=== PATIENT | female | born 1965 | race Two or more races ===

== ENCOUNTER → 2017-04-23 | Outpatient (CLI) | payer BC ==
[2017-04-23 09:11] LABS: Basophils # (auto) 0.1 uL; Eosinophils # (auto) 0.2 uL; Eosinophils % (auto) 3.8 % (0.0-7.0); Hematocrit 41.6 % (36.0-46.0); Hemoglobin 14.1 g/dL (12.2-16.2); Lymphocytes # (auto) 2.3 uL; Lymphocytes % (auto) 37.2 % (10.0-50.0); Mean Corpuscular Hemoglobin 31.1 pg (28.0-32.0); Mean Corpuscular Volume 91.5 fL (80.0-100.0); Mean Platelet Volume 7.4 fL (6.9-10.8); Monocytes # (auto) 0.5 uL; Monocytes % (auto) 8.4 % (0.0-12.0); Neutrophils # (auto) 3.1 uL; Neutrophils % (auto) 49.6 % (37.0-80.0); Nucleated Red Blood Cells % 0.1 %; Platelet Count (auto) 330 10^3/uL (140-450); Red Cell Distribution Width 12.3 % (11.8-14.3); White Blood Cell 6.3 10^3/uL (4.4-10.8)
[2017-04-23 09:29] LABS: Albumin 3.6 g/dL (3.4-5.0); BUN/Creatinine Ratio 14.5; Bilirubin, Total 0.2 mg/dL (0.2-1.0); Calcium 8.2 mg/dL (8.5-10.1); Potassium 3.6 mmol/L (3.5-5.1); Total Protein 7.1 g/dL (6.4-8.2)
== END | disposition home or self-care (01) ==
LOC: LAB 08:33
PROVIDERS: ATTEND Obstetrics & Gynecology
DX: M85.80 Other specified disorders of bone density and structure, unspecified site (principal); R53.83 Other fatigue; E55.9 Vitamin D deficiency, unspecified
CPT/HCPCS: 36415; 80053; 82306; 84443; 85025

== ENCOUNTER → 2017-11-06 | Outpatient (CLI) | payer BC ==
[2017-11-06 08:47] LABS: Basophils # (auto) 0 uL; Basophils % (auto) 0.7 % (0.0-2.0); Eosinophils # (auto) 0.2 uL; Eosinophils % (auto) 3.2 % (0.0-7.0); Hematocrit 44.5 % (36.0-46.0); Hemoglobin 14.9 g/dL (12.2-16.2); Lymphocytes # (auto) 1.9 uL; Lymphocytes % (auto) 27.4 % (10.0-50.0); Mean Corpuscular Hemoglobin 30.8 pg (28.0-32.0); Mean Corpuscular Hgb Conc. 33.6 g/dL (32.0-36.0); Mean Corpuscular Volume 91.7 fL (80.0-100.0); Monocytes # (auto) 0.7 uL; Monocytes % (auto) 9.6 % (0.0-12.0); Neutrophils # (auto) 4.1 uL; Neutrophils % (auto) 59.1 % (37.0-80.0); Nucleated Red Blood Cells % 0.2 %; Platelet Count (auto) 342 10^3/uL (140-450); Red Blood Cells 4.85 10^6/uL (4.0-5.20); Red Cell Distribution Width 12.5 % (11.8-14.3)
[2017-11-06 09:16] LABS: Albumin 3.9 g/dL (3.4-5.0); BUN/Creatinine Ratio 14.3; Bilirubin, Total 0.4 mg/dL (0.2-1.0); Calcium 8.4 mg/dL (8.5-10.1); Potassium 3.3 mmol/L (3.5-5.1); Total Protein 7.5 g/dL (6.4-8.2)
== END | disposition home or self-care (01) ==
LOC: LAB 08:30
PROVIDERS: ATTEND Obstetrics & Gynecology
DX: Z00.01 Encounter for general adult medical examination with abnormal findings (principal); E55.9 Vitamin D deficiency, unspecified; M85.80 Other specified disorders of bone density and structure, unspecified site; N95.1 Menopausal and female climacteric states; R53.83 Other fatigue
CPT/HCPCS: 36415; 80053; 80061; 82306; 83036; 84443; 85025

== ENCOUNTER → 2018-11-29 | Outpatient (CLI) | payer BC ==
[2018-11-29 08:43] LABS: Basophils # (auto) 0.1 uL; Eosinophils # (auto) 0.2 uL; Eosinophils % (auto) 2.6 % (0.0-7.0); Hematocrit 42.9 % (36.0-46.0); Hemoglobin 14.5 g/dL (12.2-16.2); Lymphocytes # (auto) 2.2 uL; Lymphocytes % (auto) 32.2 % (10.0-50.0); Mean Corpuscular Hemoglobin 30.7 pg (28.0-32.0); Mean Corpuscular Hgb Conc. 33.9 g/dL (32.0-36.0); Mean Corpuscular Volume 90.6 fL (80.0-100.0); Monocytes # (auto) 0.5 uL; Neutrophils # (auto) 3.8 uL; Neutrophils % (auto) 56.2 % (37.0-80.0); Platelet Count (auto) 278 10^3/uL (140-450); Red Blood Cells 4.74 10^6/uL (4.0-5.20); Red Cell Distribution Width 12.8 % (11.8-14.3); Urine Bacteria FEW /hpf (None Seen); Urine Blood Negative /uL (Negative); Urine Mucus FEW (None Seen); Urine Specific Gravity 1.026 (1.001-1.035); Urine WBC 1 /hpf (0 - 5); White Blood Cell 6.7 10^3/uL (4.4-10.8)
[2018-11-29 15:24] LABS: Albumin 3.6 g/dL (3.4-5.0); Potassium 3.6 mmol/L (3.5-5.1)
[2018-11-29 15:40] LABS: BUN/Creatinine Ratio 16.2; Bilirubin, Total 0.3 mg/dL (0.2-1.0); Calcium 8.5 mg/dL (8.5-10.1); Total Protein 6.8 g/dL (6.4-8.2)
== END | disposition home or self-care (01) ==
LOC: LAB 08:19
PROVIDERS: ATTEND Internal Medicine
DX: H81.09 Meniere's disease, unspecified ear (principal); E55.9 Vitamin D deficiency, unspecified
CPT/HCPCS: 36415; 80053; 80061; 81001; 82306; 84439; 84443; 85025; 85652

== ENCOUNTER → 2020-01-09 | Outpatient (CLI) | payer BC, OTHER | END | disposition home or self-care (01) | LOC: LAB 12:16 | PROVIDERS: ATTEND Physician Assistant | DX: Z03.818 Encounter for observation for suspected exposure to other biological agents ruled out (principal); Z20.828 Contact with and (suspected) exposure to other viral communicable diseases ==

== ENCOUNTER → 2020-03-08 | Outpatient (CLI) | payer BC ==
[2020-03-08 08:38] LABS: Basophils # (auto) 0.1 10 ^3/uL (0-0.2); Basophils % (auto) 0.8 % (0.0-2.0); Eosinophils # (auto) 0.1 10 ^3/uL (0-0.8); Hematocrit 41.8 % (36.0-46.0); Hemoglobin 14.3 g/dL (12.2-16.2); Lymphocytes % (auto) 29.8 % (10.0-50.0); Mean Corpuscular Hemoglobin 31.5 pg (28.0-32.0); Mean Corpuscular Hgb Conc. 34.1 g/dL (32.0-36.0); Mean Corpuscular Volume 92.4 fL (80.0-100.0); Monocytes # (auto) 0.5 10 ^3/uL (0-1.3); Monocytes % (auto) 8.1 % (0.0-12.0); Neutrophils # (auto) 3.9 10 ^3/uL (1.6-8.6); Neutrophils % (auto) 59.3 % (37.0-80.0); Platelet Count (auto) 349 10^3/uL (140-450); Red Blood Cells 4.53 10^6/uL (4.0-5.20); Red Cell Distribution Width 13.1 % (11.8-14.3); White Blood Cell 6.6 10^3/uL (4.4-10.8)
[2020-03-08 09:00] LABS: Albumin 3.6 g/dL (3.4-5.0); Calcium 8.7 mg/dL (8.5-10.1); Potassium 3.5 mmol/L (3.5-5.1)
[2020-03-08 09:06] LABS: BUN/Creatinine Ratio 14.7; Bilirubin, Total 0.3 mg/dL (0.2-1.0); Total Protein 7.3 g/dL (6.4-8.2)
== END | disposition home or self-care (01) ==
LOC: LAB 08:06
PROVIDERS: ATTEND Obstetrics & Gynecology
DX: Z00.00 Encounter for general adult medical examination without abnormal findings (principal); E55.9 Vitamin D deficiency, unspecified; H81.09 Meniere's disease, unspecified ear
CPT/HCPCS: 36415; 80053; 80061; 82306; 84443; 85025

== ENCOUNTER → 2023-05-21 | Outpatient (CLI) | payer BC ==
[2023-05-21 12:36] LABS: Basophils # (auto) 0 10 ^3/uL (0-0.2); Basophils % (auto) 0.7 % (0.0-2.0); Eosinophils # (auto) 0.2 10 ^3/uL (0-0.8); Eosinophils % (auto) 3.3 % (0.0-7.0); Hematocrit 43.6 % (36.0-46.0); Hemoglobin 15.1 g/dL (12.2-16.2); Lymphocytes # (auto) 2.1 10 ^3/uL (0.4-5.4); Lymphocytes % (auto) 33.4 % (10.0-50.0); Mean Corpuscular Hemoglobin 30.8 pg (28.0-32.0); Mean Corpuscular Hgb Conc. 34.5 g/dL (32.0-36.0); Mean Corpuscular Volume 89.3 fL (80.0-100.0); Monocytes # (auto) 0.5 10 ^3/uL (0-1.3); Monocytes % (auto) 8.6 % (0.0-12.0); Neutrophils # (auto) 3.4 10 ^3/uL (1.6-8.6); Nucleated Red Blood Cells % 0.1 %; Red Blood Cells 4.88 10^6/uL (4.0-5.20); Red Cell Distribution Width 12.9 % (11.8-14.3); White Blood Cell 6.3 10^3/uL (4.4-10.8)
[2023-05-21 12:42] LABS: Alanine Aminotransferase 15 U/L (7-40); Albumin 4.5 g/dL (3.2-4.8); Alkaline Phosphatase 73 U/L (46-116); Anion Gap 6 (5-15); Aspartate Aminotransferase 10 U/L (13-40); BUN/Creatinine Ratio 18.4 (10.0-20.0); Blood Urea Nitrogen 14 mg/dL (9-23); Calcium 9.2 mg/dL (8.5-10.1); Carbon Dioxide 29 mmol/L (20-30); Chloride 102 mmol/L (98-107); Glucose 79 mg/dL (74-106); LDL Cholesterol 137 mg/dL (< 100); Potassium 3.8 mmol/L (3.5-5.1); Sodium 137 mmol/L (136-145); Triglycerides 112 mg/dL (< 150)
[2023-05-21 12:43] LABS: Bilirubin, Total 0.4 mg/dL (0.2-1.0); Cholesterol 207 mg/dL (< 200); HDL Cholesterol 55 mg/dL (40-59); Total Protein 7.3 g/dL (5.7-8.2)
[2023-05-21 13:04] LABS: Erythrocyte Sedimentation Rate 4 mm/hr (0-20)
== END | disposition home or self-care (01) ==
LOC: LAB 12:12
PROVIDERS: ATTEND Internal Medicine
DX: H81.09 Meniere's disease, unspecified ear (principal); Z79.899 Other long term (current) drug therapy
CPT/HCPCS: 36415; 80053; 80061; 82306; 83735; 84439; 84443; 85025; 85652

== ENCOUNTER 2023-10-08 08:48 | Inpatient (IN) | payer BC ==
[~2023-10-08] VITALS: Ht 152.4 cm; Wt 68.2 kg
[2023-10-08 10:31] VITALS: BP 114/65; PULSE 89; RESP 16; TEMP 98.1; O2SAT 96
[2023-10-08 10:32] VITALS: BP 114/65; PULSE 89; RESP 16; TEMP 98.1; O2SAT 96
[2023-10-08] MEDS: cefTRIAXone 1GM/50ML D5W 50 ML IV ONE (12:00)
[2023-10-08] MEDS ORDERED: ACETAMINOPHEN 500 MG TAB PO PRN (12:00)
[2023-10-08] MEDS ORDERED: traMADol HCL 50 MG TAB PO PRN (12:00)
[2023-10-08] MEDS: PANTOPRAZOLE 40 MG/10 ML VIAL INJ IV ONE (12:00)
[2023-10-08] MEDS: SODIUM CHLORIDE 0.9% 1,000 ML IV SCH (12:00)
[2023-10-08] MEDS ORDERED: TRIA37.587 PO (12:47)
[2023-10-08 13:03] LABS: Basophils # (auto) 0.1 10 ^3/uL (0-0.2); Basophils % (auto) 0.8 % (0.0-2.0); Eosinophils # (auto) 0.2 10 ^3/uL (0-0.8); Eosinophils % (auto) 2.3 % (0.0-7.0); Hematocrit 43.1 % (36.0-46.0); Hemoglobin 14.8 g/dL (12.2-16.2); Lymphocytes % (auto) 18.8 % (10.0-50.0); Mean Corpuscular Hemoglobin 30.7 pg (28.0-32.0); Mean Corpuscular Hgb Conc. 34.3 g/dL (32.0-36.0); Mean Corpuscular Volume 89.6 fL (80.0-100.0); Monocytes # (auto) 1.1 10 ^3/uL (0-1.3); Monocytes % (auto) 10.3 % (0.0-12.0); Neutrophils % (auto) 67.8 % (37.0-80.0); Nucleated Red Blood Cells % 0.1 %; Red Blood Cells 4.82 10^6/uL (4.0-5.20); Red Cell Distribution Width 12.3 % (11.8-14.3); White Blood Cell 10.4 10^3/uL (4.4-10.8)
[2023-10-08 13:09] VITALS: BP 110/63; PULSE 77; RESP 16; TEMP 98.4; O2SAT 97
[2023-10-08 13:23] LABS: INR 1.09 (0.9-1.15); Partial Thromboplastin Time 31.5 SEC (24.5-34.5); Prothrombin Time 11.4 sec (9.3-11.8)
[2023-10-08 13:30] LABS: Alanine Aminotransferase 21 U/L (7-40); Albumin 4.4 g/dL (3.2-4.8); Alkaline Phosphatase 101 U/L (46-116); Anion Gap 8 (5-15); Aspartate Aminotransferase 23 U/L (13-40); BUN/Creatinine Ratio 14.5 (10.0-20.0); Bilirubin, Total 0.6 mg/dL (0.2-1.0); Blood Urea Nitrogen 9 mg/dL (9-23); Calcium 8.9 mg/dL (8.7-10.4); Carbon Dioxide 28 mmol/L (20-30); Chloride 97 mmol/L (98-107); Glucose 82 mg/dL (74-106); Potassium 3.5 mmol/L (3.5-5.1); Sodium 133 mmol/L (136-145); Total Protein 7.2 g/dL (5.7-8.2)
[2023-10-08 13:58] LABS: Urine Bacteria FEW /hpf (None Seen); Urine Blood Negative /uL (Negative); Urine Clarity Clear (Clear); Urine Protein, UAD Negative (Negative); Urine Specific Gravity 1.008 (1.001-1.035); Urine Urobilinogen Normal (Negative); Urine WBC 1 /hpf (0 - 5); Urine pH 6.5 (5.0-8.0)
[2023-10-08 14:00] LABS: Urine Color Straw (Yellow)
[2023-10-08] MEDS: metroNIDAZOLE 500MG/100ML 100 ML IV SCH (14:00)
[2023-10-08 16:55] LABS: Alanine Aminotransferase 19 U/L (7-40); Albumin 4.2 g/dL (3.2-4.8); Alkaline Phosphatase 101 U/L (46-116); Anion Gap 8 (5-15); Aspartate Aminotransferase 21 U/L (13-40); BUN/Creatinine Ratio 12.7 (10.0-20.0); Bilirubin, Total 0.5 mg/dL (0.2-1.0); Blood Urea Nitrogen 8 mg/dL (9-23); Calcium 8.9 mg/dL (8.5-10.1); Carbon Dioxide 28 mmol/L (20-30); Chloride 97 mmol/L (98-107); Glucose 78 mg/dL (74-106); Potassium 3.2 mmol/L (3.5-5.1); Sodium 133 mmol/L (136-145); Total Protein 7.1 g/dL (5.7-8.2)
[2023-10-08 17:03] VITALS: BP 108/63; PULSE 77; RESP 18; TEMP 98.3; O2SAT 94
[2023-10-08 20:00] VITALS: PULSE 66; RESP 18; O2SAT 100
[2023-10-08] MEDS ORDERED: LACTATED RINGER'S 1,000 ML IV SCH (21:00)
[2023-10-08 22:00] VITALS: BP 99/52; PULSE 66; RESP 17; TEMP 97.5; O2SAT 100
[2023-10-09 05:00] VITALS: BP 98/53; PULSE 64; RESP 16; TEMP 97.5; O2SAT 96
[2023-10-09] MEDS ORDERED: DexAMETHasone SOD PHOS 10MG/1ML VIAL INJ ONE (06:53)
[2023-10-09] MEDS ORDERED: PROPOFOL 10 MG/ML 20 ML IV ONE (06:53)
[2023-10-09] MEDS ORDERED: ONDANSETRON HCL 4 MG/2 ML VIAL ONE (06:53)
[2023-10-09] MEDS ORDERED: ROCURONIUM 10MG/ML 10ML VIAL IV ONE (06:53)
[2023-10-09] MEDS ORDERED: GLYCOPYRROLATE 0.2 MG/ML 1ML VIAL ONE (06:53)
[2023-10-09] MEDS ORDERED: KETOROLAC TROMETH 30 MG/ML 1ML VIAL ONE (06:54)
[2023-10-09] MEDS ORDERED: SUGAMMADEX 200mg/2ml Vial (100MG/ML) IV ONE (06:56)
[2023-10-09] MEDS: ACETAMINOPHEN IV 1000 MG/100ML (10MG/ML) IV ONE (07:00)
[2023-10-09] MEDS: GABAPENTIN 400 MG CAP PO ONE (07:00)
[2023-10-09] MEDS: CELECOXIB 100 MG CAP PO ONE (07:00)
[2023-10-09] MEDS: ceFAZolin 2 GM/D5W50ml 50 ML IV ONE (07:00)
[2023-10-09] MEDS: LIDOCAINE 2%HCL (LOCAL ANESTH.) INJ 10ml MDV ONE (07:00)
[2023-10-09] MEDS ORDERED: fentaNYL CITRATE 100 MCG/2 ML VL ONE (07:07)
[2023-10-09] MEDS ORDERED: KETAMINE 50mg/ML 10ml Vial 10 ML ONE (07:25)
[2023-10-09] MEDS: LIDOCAINE W/ EPINEPHRINE 1% 20ML VIAL ONE (07:50)
[2023-10-09] MEDS: BUPIVACAINE 0.25% INJ 50ML VIAL ONE (07:50)
[2023-10-09] MEDS: POVIDONE IODINE 10 % TOPICAL OINT 30GM TOP ONE (07:50)
[2023-10-09 08:03] VITALS: O2SAT 100
[2023-10-09] MEDS ORDERED: HYDROmorphone HCL 2 MG/ML VL/or syr IV PRN (08:15)
[2023-10-09] MEDS ORDERED: traMADol HCL 50 MG TAB PO PRN (08:15)
[2023-10-09] MEDS ORDERED: FLUMAZENIL 0.1 MG/ML INJ 10ML MDV IV PRN (08:15)
[2023-10-09] MEDS ORDERED: NALOXONE HCL 0.4 MG/ML VIAL IV PRN (08:15)
[2023-10-09] MEDS ORDERED: oxyCODONE HCL 5MG TAB PO PRN (08:15)
[2023-10-09] MEDS ORDERED: ONDANSETRON HCL 4 MG/2 ML VIAL IV PRN (08:15)
[2023-10-09] MEDS ORDERED: fentaNYL CITRATE 100 MCG/2 ML VL IV PRN (08:15)
[2023-10-09] MEDS ORDERED: hydrALAZINE HCL 20 MG/ML VL IV PRN (08:15)
[2023-10-09] MEDS ORDERED: ePHEDrine SULFATE 50 MG/ML AMP IV PRN (08:15)
[2023-10-09] MEDS ORDERED: LABETALOL HCL 5 MG/ML 4ML SYRINGE IV PRN (08:15)
[2023-10-09] MEDS: ONDANSETRON HCL 4 MG/2 ML VIAL IV PRN (08:33)
[2023-10-09] MEDS ORDERED: cefTRIAXone 1GM/50ML D5W 50 ML IV SCH (09:00)
[2023-10-09] MEDS: HYDROmorphone HCL 2 MG/ML VL/or syr ONE (09:02)
[2023-10-09] MEDS: HYDROmorphone HCL 2 MG/ML VL/or syr IV PRN (09:03)
[2023-10-09] MEDS: TRIAMTERENE/HCTZ 37.5/25 MG CAP/TAB PO SCH (10:00)
[2023-10-09] MEDS: PANTOPRAZOLE 40 MG/10 ML VIAL INJ IV SCH (10:30)
[2023-10-09] MEDS: cefTRIAXone 1GM/50ML D5W 50 ML IV SCH (10:30)
[2023-10-09 13:34] VITALS: BP 106/59; PULSE 61; RESP 18; TEMP 97.2; O2SAT 96
[2023-10-09] MEDS: KETOROLAC TROMETH 30 MG/ML 1ML VIAL IV PRN (17:01)
[2023-10-09] MEDS: D5W/SOD CHL 0.45%/KCL 40MEQ 1,000 ML IV SCH (17:10)
[2023-10-09 17:33] VITALS: BP 114/51; PULSE 66; RESP 16; TEMP 97.6; O2SAT 96
[2023-10-09 22:00] VITALS: BP 100/64; PULSE 56; RESP 16; TEMP 97.5; O2SAT 96
[2023-10-10] VITALS (7 sets, daily range): BP systolic 98–114; BP diastolic 45–60; PULSE 54–63; RESP 17–20; TEMP 97.7–98.6; O2SAT 93–100
[2023-10-10 06:30] LABS: Basophils # (auto) 0 10 ^3/uL (0-0.2); Basophils % (auto) 0.1 % (0.0-2.0); Eosinophils # (auto) 0 10 ^3/uL (0-0.8); Eosinophils % (auto) 0.1 % (0.0-7.0); Hematocrit 33.5 % (36.0-46.0); Hemoglobin 11.7 g/dL (12.2-16.2); Lymphocytes # (auto) 1.9 10 ^3/uL (0.4-5.4); Mean Corpuscular Hemoglobin 31.2 pg (28.0-32.0); Mean Corpuscular Hgb Conc. 34.9 g/dL (32.0-36.0); Mean Corpuscular Volume 89.5 fL (80.0-100.0); Monocytes # (auto) 0.8 10 ^3/uL (0-1.3); Monocytes % (auto) 6.9 % (0.0-12.0); Neutrophils % (auto) 76.9 % (37.0-80.0); Red Blood Cells 3.74 10^6/uL (4.0-5.20); Red Cell Distribution Width 12.1 % (11.8-14.3); White Blood Cell 11.7 10^3/uL (4.4-10.8)
[2023-10-10 16:00] LABS: Alkaline Phosphatase 70 U/L (46-116)
[2023-10-10 16:01] LABS: Alanine Aminotransferase 17 U/L (7-40); Albumin 3.2 g/dL (3.2-4.8); Anion Gap 5 (5-15); Aspartate Aminotransferase 14 U/L (13-40); BUN/Creatinine Ratio 15.8 (10.0-20.0); Bilirubin, Total 0.2 mg/dL (0.2-1.0); Blood Urea Nitrogen 9 mg/dL (9-23); Calcium 8.2 mg/dL (8.7-10.4); Carbon Dioxide 25 mmol/L (20-30); Chloride 107 mmol/L (98-107); Glucose 91 mg/dL (74-106); Potassium 3.9 mmol/L (3.5-5.1); Sodium 137 mmol/L (136-145); Total Protein 5.1 g/dL (5.7-8.2)
[2023-10-10 16:51] LABS: Base Excess -2.7 mmol/L (-2.0-2.0)
[2023-10-11 04:47] VITALS: BP 110/59; PULSE 63; RESP 16; TEMP 98.1; O2SAT 94
[2023-10-11 08:00] VITALS: BP 110/40; PULSE 58; RESP 20; TEMP 98; O2SAT 95
[2023-10-11 12:00] VITALS: BP 110/48; PULSE 55; RESP 20; TEMP 98.1; O2SAT 96
[2023-10-11] MEDS ORDERED: METR-344 PO (15:56)
[2023-10-11] MEDS ORDERED: [UNRECOGNIZED DRUG - CODE] PO (15:56)
[2023-10-11 16:00] VITALS: BP 125/63; PULSE 53; RESP 18; TEMP 98.3; O2SAT 90
[2023-10-11 16:07] VITALS: BP 106/55; PULSE 60; RESP 18; TEMP 36.7; O2SAT 99
[2023-10-11] MEDS ORDERED: NAPR-746 PO (16:15)
[2023-10-11] MEDS ORDERED: DOCU-265 PO (16:15)
[2023-10-11] MEDS ORDERED: CEPH250C PO (17:29)
== END 2023-10-11 17:55 | disposition home or self-care (01) | DRG 419 ==
LOC: WEST WING 10:05
PROVIDERS: ADMIT Internal Medicine; ATTEND Internal Medicine
PROC: 0FT44ZZ Resection of Gallbladder, Percutaneous Endoscopic Approach (ICD-10-PCS; principal; 2023-10-09 07:15)
DX: K80.12 Calculus of gallbladder with acute and chronic cholecystitis without obstruction (principal); K66.0 Peritoneal adhesions (postprocedural) (postinfection); H81.09 Meniere's disease, unspecified ear; Z88.6 Allergy status to analgesic agent; Z88.5 Allergy status to narcotic agent; Z90.710 Acquired absence of both cervix and uterus
CPT/HCPCS: 36415; 36600; 71045; 80053; 81001; 82247; 82805; 85025; 85610; 85730; 86850; 86900; 86901; C9113; G0378; J0131; J1100; J1885; J2001; J2405; J2704; J3490

== ENCOUNTER → 2024-06-27 | Outpatient (CLI) | payer BC ==
[~2024-06-27] MED LIST: CEPH250C PO; DOCU-265 PO; METR-344 PO; NAPR-746 PO; TRIA37.587 PO; [UNRECOGNIZED DRUG - CODE] PO
[2024-06-27 10:12] LABS: Basophils # (auto) 0 10 ^3/uL (0-0.2); Basophils % (auto) 0.6 % (0.0-2.0); Eosinophils # (auto) 0.2 10 ^3/uL (0-0.8); Eosinophils % (auto) 2.8 % (0.0-7.0); Hematocrit 42.5 % (36.0-46.0); Hemoglobin 14.5 g/dL (12.2-16.2); Lymphocytes % (auto) 29.1 % (10.0-50.0); Mean Corpuscular Hgb Conc. 34.1 g/dL (32.0-36.0); Mean Corpuscular Volume 93.6 fL (80.0-100.0); Monocytes # (auto) 0.6 10 ^3/uL (0-1.3); Monocytes % (auto) 7.9 % (0.0-12.0); Neutrophils # (auto) 4.2 10 ^3/uL (1.6-8.6); Neutrophils % (auto) 59.6 % (37.0-80.0); Nucleated Red Blood Cells % 0.1 %; Platelet Count (auto) 339 10^3/uL (140-450); Red Blood Cells 4.54 10^6/uL (4.0-5.20); Red Cell Distribution Width 13.1 % (11.8-14.3)
[2024-06-27 10:45] LABS: Alanine Aminotransferase 21 U/L (7-40); Albumin 4.2 g/dL (3.2-4.8); Alkaline Phosphatase 68 U/L (46-116); Anion Gap 5 (5-15); Aspartate Aminotransferase 16 U/L (13-40); BUN/Creatinine Ratio 12.2 (10.0-20.0); Blood Urea Nitrogen 9 mg/dL (9-23); Calcium 9.6 mg/dL (8.7-10.4); Carbon Dioxide 32 mmol/L (20-31); Chloride 101 mmol/L (98-107); Cholesterol 177 mg/dL (< 200); Glucose 87 mg/dL (74-106); HDL Cholesterol 53 mg/dL (40-59); LDL Cholesterol 95 mg/dL (< 100); Potassium 3.8 mmol/L (3.5-5.1); Sodium 138 mmol/L (136-145); Triglycerides 216 mg/dL (< 150)
[2024-06-27 10:46] LABS: Bilirubin, Total 0.3 mg/dL (0.2-1.0)
== END | disposition home or self-care (01) ==
LOC: LAB 09:57
PROVIDERS: ATTEND Obstetrics & Gynecology
DX: E78.00 Pure hypercholesterolemia, unspecified (principal); N95.1 Menopausal and female climacteric states; M85.80 Other specified disorders of bone density and structure, unspecified site; R53.83 Other fatigue
CPT/HCPCS: 36415; 80053; 80061; 82306; 82607; 83036; 84443; 85025; 86141

== ENCOUNTER → 2024-11-28 | Outpatient (CLI) | payer BC ==
--- NOTE | 2024-11-28 13:48 | DVHCARD ---
Cardiology Stress Test [place] Treadmill Stress Test [place] Referring MD: MD John Protocol: Manny (with cardiolite) Reason for referral: Chest Pain Target heart Rate:@85%: 137 Percent MPHR: 162 METS: 10.10 Resting Heart rate: 60 Resting Blood Pressure: 113/48 Exercise Heart Rate: 162 Exercise Blood Pressure: 162/53 Reason for Termination of Test: Completion of Protocol Baseline EKG: Sinus rhythm with T-wave inversion to septal leads Stress EKG: Sinus tachycardia without discernible ST-segment changes Functional Capacity: Good Normal Heart Rate Response: Adequate Blood Pressure Response: Hypertensive Clinical response: Non-ischemic Arrhythmia?: No Cardiolite Injected?: Yes ST-T Changes: Non/Minimal Probability of Inducible Ische: Perfusion result pending Comments: Uneventful Manny protocol Date of Service: Nov 28, 2024 Billing Provider: PEPE ALCALA Cardiology Common Codes: PROCEDURE ONLY Treadmill W/Cardiolite Nuclear: [id number], INTERP, RPT PEPE ALCALA Nov 28, 2024 13:48
--- NOTE | 2024-11-28 18:07 | DVHSR ---
APPROVED REPORT Exam: Nuclear Stress Test Indication: CHEST PAIN Stress Tech: Nayeli Shultz Ht: 5 ft 0 in Wt: 148 lbs BSA: 1.64 m2 BMI: 28.90 Medical History Medical History: PALPITAIONS, MENIERE'S DISEASE Allergies: MORPHIINE, PERCOCET, FLAGYL Stress Test Details Stress Test: Exercise stress testing was performed using a Manny protocol. Reason for pharmacologic stress test: CHEST PAIN. HR Resting HR: 60 bpmMax Heart Rate (APMHR): 162.404646 bpm Max HR Achieved: 162 bpmTarget HR (85% APMHR): 137.430194 bpm % of APMHR: 100.00 Recovery HR: 93 bpm BP Resting BP: 113/48 mmHg Recovery BP: 126/66 mmHg ECG Resting ECG: Sinus Rhythm Clinical Reason for Termination: Completed protocol Exercise capacity: 10.1 METs Nurse Comments Received patient ambulatory, A&O x4 and on RA. Patient is connected to mold breaker and vitals ar e WNL. For furhter details please refer to stress test documentation and cardio-neuro procedural note s. RT AC 22g PIV flushes well. Reviewed POC and patient verbalized understanding. Treadmill stress test performed per protocol with ALANA Park present during test. failure analysis technician at patient's side to administer Cardioloite Treadmill stress test performed per protocol. failure analysis technician administered Cardiolite. Patient tolerated well and all vitals returned to baseline. Patient transferred back to [facility] in stable condition. Stress ECG Conclusion lvef 77% normal perfusion NM EXAM: Myocardial Perfusion REST/STRESS Imaging Protocol: Rest Tc-99m/Stress Tc-99m 1 day Resting Data Rest SPECT myocardial perfusion imaging was performed in supine position 60 minutes following the int ravenous injection of 11 mCi of Tc-99m Sestamibi. Time of rest injection: 944 Date: 11/28/2024 Time of rest imagin Date: 11/28/2024 Administration Route: IV Administration Site: Right Arm Pharmacologic Stress Time of stress injection: Date: Time of stress imaging: Date: Exercise Stress At peak stress, the patient was injected intravenously with 30.4mCi of Tc-99m Sestamibi. Time of stress injection: 1130 Date: 11/28/2024 Time of stress imagin Date: 11/28/2024 Administration Route: IV Administration Site: Right Arm Heart Rate at time of stress injection: 162 bpm. Patient continued to exercise for 9 minute(s). Gated Stress SPECT was performed 60 minutes after stress injection. The images were gated to evaluate regional wall motion and calculate left ventricular ejection fracti on. Stress only was performed in the Supine position. Nuclear Conclusion lvef 77% normal perfusion
== END | disposition home or self-care (01) ==
LOC: XYW 08:38
PROVIDERS: ATTEND Internal Medicine
DX: R07.9 Chest pain, unspecified (principal); R00.2 Palpitations; H81.09 Meniere's disease, unspecified ear; E66.3 Overweight; Z88.5 Allergy status to narcotic agent; Z88.1 Allergy status to other antibiotic agents; Z68.28 Body mass index [BMI] 28.0-28.9, adult; Z82.49 Family history of ischemic heart disease and other diseases of the circulatory system
CPT/HCPCS: 78452; 93017; A9500

== ENCOUNTER → 2025-05-04 | Outpatient (CLI) | payer BC ==
[2025-05-04 11:51] LABS: Alanine Aminotransferase 16 U/L (7-40); Alkaline Phosphatase 58 U/L (46-116); Anion Gap 7 (5-15); BUN/Creatinine Ratio 19.5 (10.0-20.0); Blood Urea Nitrogen 15 mg/dL (9-23); Calcium 9.6 mg/dL (8.7-10.4); Carbon Dioxide 31 mmol/L (20-31); Chloride 100 mmol/L (98-107); Glucose 86 mg/dL (74-106); Potassium 3.9 mmol/L (3.5-5.1); Sodium 138 mmol/L (136-145); Total Protein 6.9 g/dL (5.7-8.2)
[2025-05-04 11:52] LABS: Albumin 4.2 g/dL (3.2-4.8); Bilirubin, Total 0.3 mg/dL (0.2-1.0)
== END | disposition home or self-care (01) ==
LOC: LAB 10:24
PROVIDERS: ATTEND Obstetrics & Gynecology
DX: R22.32 Localized swelling, mass and lump, left upper limb (principal)
CPT/HCPCS: 36415; 80053

== ENCOUNTER 2025-07-24 11:59 | Day surgery (SDC) | payer BC ==
[2025-07-21 10:56] LABS: Urine Protein, UAD Negative (Negative)
[2025-07-21 11:09] LABS: Hematocrit 44.6 % (36.0-46.0); Hemoglobin 15.3 g/dL (12.2-16.2); Mean Corpuscular Hemoglobin 31.2 pg (28.0-32.0); Mean Corpuscular Volume 90.5 fL (80.0-100.0); Nucleated Red Blood Cells % 0.0 %
[2025-07-21 11:13] LABS: Alanine Aminotransferase 21 U/L (7-40); Albumin 4.5 g/dL (3.2-4.8); Alkaline Phosphatase 69 U/L (46-116); Anion Gap 7 (5-15); BUN/Creatinine Ratio 16.3 (10.0-20.0); Blood Urea Nitrogen 13 mg/dL (9-23); Calcium 9.5 mg/dL (8.7-10.4); Chloride 101 mmol/L (98-107); Glucose 88 mg/dL (74-106); Potassium 3.9 mmol/L (3.5-5.1); Sodium 140 mmol/L (136-145); Total Protein 7.4 g/dL (5.7-8.2)
[2025-07-21 11:14] LABS: Bilirubin, Total 0.3 mg/dL (0.2-1.0); Carbon Dioxide 32 mmol/L (20-31)
[2025-07-21 11:31] LABS: INR 1.0 (0.9-1.15); Partial Thromboplastin Time 27.6 SEC (24.5-34.5); Prothrombin Time 10.6 sec (9.3-11.8)
[~2025-07-24] VITALS: Ht 152.4 cm; Wt 66.2 kg
[~2025-07-24 11:59] MED LIST changes: -CEPH250C PO; +DIPH25CA66 PO; -DOCU-265 PO; -METR-344 PO; -NAPR-746 PO; +PSEU1TAB26 PO; +TRIA37.586 PO; -TRIA37.587 PO; -[UNRECOGNIZED DRUG - CODE] PO
[2025-07-24] MEDS ORDERED: MEPERIDINE HCL (25 MG/ML) 1ML VIAL ONE (13:48)
[2025-07-24] MEDS ORDERED: PROPOFOL 10 MG/ML 20 ML IV ONE (13:48)
[2025-07-24] MEDS ORDERED: MIDAZOLAM HCL 2MG/2ML 2ml VIAL (1mg/ml) ONE (13:48)
[2025-07-24] MEDS ORDERED: fentaNYL CITRATE 100 MCG/2 ML VL ONE (13:48)
[2025-07-24] MEDS ORDERED: ONDANSETRON HCL 4 MG/2 ML VIAL ONE (13:48)
[2025-07-24] MEDS ORDERED: SODIUM CHLORIDE LOCK 10 ML ONE (13:48)
[2025-07-24] MEDS ORDERED: MORPHINE SULFATE INJ 2 MG/ml SYRG IV PRN (14:15)
[2025-07-24] MEDS ORDERED: METOCLOPRAMIDE HCL 5MG/ml INJ 2ml VIAL IV PRN (14:15)
[2025-07-24] MEDS ORDERED: MORPHINE SULFATE 4 MG/ML SYR/VIAL IV PRN (14:15)
[2025-07-24] MEDS ORDERED: HYDROmorphone HCL 2 MG/ML VL/or syr IV PRN ×2 (14:15)
--- NOTE | 2025-07-24 14:19 | DVHOP2 ---
Operative Report - 2 Report Details Date: 07/24/25 Preop Diagnosis: 1. Left foot bunion 2. Left foot pain Postop Diagnosis: Same as preop Surgeon: Edgar Gregory MD Anesthesiologist: See anesthesia Anesthesia: Mac Implant: 6 2 K-wire Consent: The patient was informed of the risks and benefits of the procedure. These include but are not limited to complications of anesthesia, postoperative infection, incomplete relief of symptoms, recurrence of symptoms, damage to blood vessels, nerves and tendons, deep venous thrombosis, pulmonary embolism and possible need for repeat surgery in the future. Complications: None Estimated Blood Loss: Minimal Fluids: See anesthesia Findings: Consistent with diagnosis Indications for Surgery: Worsening left foot pain Name of Procedure Performed 1. Left foot MIS bunionectomy (64291) Procedure Details Procedure Details: PRE-PROCEDURE INFORMATION: In the pre-op holding area, the extremity to be operated on was clearly marked and the patient verified correct laterality of the marking. The patient was transferred to the OR table and placed in a supine position. A timeout was performed in which identification of the correct patient, procedure, location, and materials was done. The left foot and leg were prepped and draped in normal sterile fashion. DESCRIPTION OF PROCEDURE: Attention was directed to the left 1st metatarsophalangeal joint where a stab incision was made at the neck of the 1st metatarsal. Care was taken to avoid damage the neurovascular and tendinous structures. An MIS per, an osteotomy was then made at the neck of the 1st metatarsal. The metatarsal head was then shifted into position aligning the s esamoid bones over the fragment. Using a 6 2 K-wire, the wire was then driven down the shaft of the 1st metatarsal to hold the head in place until the osteotomy has healed. All surgical wounds were irrigated copiously with saline and closed in layers w ith the aforementioned suture material. A dry sterile dressing was placed on the surgical extremity. The patient was placed in a postop shoe POSTOPERATIVE INFORMATION: The patient tolerated the above noted procedure and anesthesia well and was transferred to the PACU with vital signs stable, and vascular status intact with capillary refill intact to all digits. Postoperative instructions reviewed in detail with the patient with written instructions provided. Patient will return to clinic in approximately 10-14 days for first postoperative visit. Patient has the number of the clinic and was instructed to call prior to that time should any problems, questions, or concerns arise. Condition Good Disposition Home Visit Coding Podiatry Date of Service if different f: Jul 24, 2025 Billing Provider: EDGAR GREGORY DPM Podiatry Common Visit Codes: PROCEDURE ONLY EDGAR GREGORY DPM Jul 24, 2025 14:19
[2025-07-24] MEDS: BUPIVACAINE 0.5% P/F INJ 10 ML VIAL ONE (14:34)
[2025-07-24] MEDS: ceFAZolin 2 GM/D5W50ml 50 ML IV ONE (14:35)
[2025-07-24 14:37] VITALS: PULSE 55; RESP 12; TEMP 97.6; O2SAT 98
[2025-07-24] MEDS: KETOROLAC TROMETH 30 MG/ML 1ML VIAL IV ONE (15:39)
[2025-07-24 15:52] VITALS: BP 107/59; PULSE 59; RESP 12; O2SAT 100
== END 2025-07-24 16:00 | disposition home or self-care (01) ==
LOC: EEVIPCON → SUR 11:59
PROVIDERS: ATTEND Podiatrist
DX: M21.612 Bunion of left foot (principal); I49.9 Cardiac arrhythmia, unspecified; I47.10 Supraventricular tachycardia, unspecified; Z79.899 Other long term (current) drug therapy; Z90.49 Acquired absence of other specified parts of digestive tract; Z90.710 Acquired absence of both cervix and uterus; Z98.890 Other specified postprocedural states; Z88.8 Allergy status to other drugs, medicaments and biological substances
CPT/HCPCS: 28306; 36415; 80053; 81001; 85025; 85610; 85730; C1713; J0690; J1885; J2175; J2250; J2405; J2704; J3010; J3490